=== PATIENT | male | born 1990 | race Caucasian/White ===

== ENCOUNTER → 2017-10-11 | Outpatient (CLI) | payer OTHER | END | disposition home or self-care (01) | LOC: SONOGRAMA 09:23 | DX: K59.09 Other constipation (principal); K44.9 Diaphragmatic hernia without obstruction or gangrene; K21.9 Gastro-esophageal reflux disease without esophagitis; R12 Heartburn; K64.8 Other hemorrhoids; R19.4 Change in bowel habit; E73.9 Lactose intolerance, unspecified ==

== ENCOUNTER 2018-02-05 07:22 | Outpatient (CLI) | payer OTHER | END 2018-02-05 08:00 | disposition home or self-care (01) | LOC: NUCLEAR 07:22 | DX: R10.84 Generalized abdominal pain (principal); R10.30 Lower abdominal pain, unspecified; R19.4 Change in bowel habit; K59.09 Other constipation; K44.9 Diaphragmatic hernia without obstruction or gangrene; K21.9 Gastro-esophageal reflux disease without esophagitis; R12 Heartburn; R16.0 Hepatomegaly, not elsewhere classified; K76.89 Other specified diseases of liver; K64.8 Other hemorrhoids; K76.0 Fatty (change of) liver, not elsewhere classified; E73.8 Other lactose intolerance | CPT/HCPCS: 78264; A9541 ==

== ENCOUNTER 2020-10-29 13:40 | Emergency (ER) | payer OTHER ==
[~2020-10-29] VITALS: Ht 188 cm; Wt 165.1 kg
[2020-10-29] MEDS ORDERED: TENORMIN50 MG (13:51)
[2020-10-29] MEDS ORDERED: HYDROCHLOROTH12.5 MG (13:51)
== END 2020-10-29 15:18 ==
LOC: ER 13:40
DX: T16.2XXA Foreign body in left ear, initial encounter (principal); W45.8XXA Other foreign body or object entering through skin, initial encounter; Y93.89 Activity, other specified; Y92.89 Other specified places as the place of occurrence of the external cause; Y99.8 Other external cause status

== ENCOUNTER 2022-02-23 11:14 | Outpatient (CLI) | payer OTHER ==
[~2022-02-23 11:14] MED LIST: HYDROCHLOROTH12.5 MG; TENORMIN50 MG
== END 2022-02-23 11:20 | disposition home or self-care (01) ==
LOC: SONOGRAMA 11:14
PROVIDERS: ATTEND General Practice
DX: N23 Unspecified renal colic (principal)

== ENCOUNTER → 2025-01-11 | Outpatient (CLI) | payer OTHER | END | disposition home or self-care (01) | LOC: SONOGRAMA 12:19 | PROVIDERS: ATTEND Pathology Anatomic Pathology & Clinical Pathology | DX: D34 Benign neoplasm of thyroid gland (principal); E07.89 Other specified disorders of thyroid; E06.3 Autoimmune thyroiditis; E04.2 Nontoxic multinodular goiter ==